=== PATIENT | female | born 1955 | race Caucasian/White ===

== ENCOUNTER → 2016-08-06 | Outpatient (CLI) | payer OTHER ==
[~2016-08-06] MED LIST: AMITRYPTYLINE PO; BENADRYL PO; BENTYL20 M1 PO; BUSPAR5 M1 PO; CELEXA; CELEXA20 MG PO; CHOLESTEROL MED PO; GABAPENTIN400 M2 PO; HYDROCODON-ACE1 EAC5 PO; KEFLEX500 MG PO; KLONOPIN2 MG PO; NAPROSYN-EC500 M1 PO; NAPROSYN250 M1 PO; NEOMYCIN/POLY/7.5 ML OP; NEURONTIN300 MG PO; PHENERGAN25 M1 PO; PHENERGAN25 MG PO; TIZANIDINE HCL4 M1 PO; TYLENOL #3 PO; VALIUM10 MG PO; VITAMIN D1000 UNI1 PO; ZANAFLEX4 M1 PO
== END | disposition home or self-care (01) ==
LOC: CSSDAY 09:28
DX: M81.0 Age-related osteoporosis without current pathological fracture (principal); Z79.899 Other long term (current) drug therapy
CPT/HCPCS: 36415; 82310; 96372; J0897